=== PATIENT | female | born 1970 | race Caucasian/White ===

== ENCOUNTER 2022-01-25 17:18 | Emergency (ER) | payer BC, OTHER ==
[~2022-01-25] VITALS: Ht 160 cm; Wt 79.9 kg
[2022-01-25] MEDS ORDERED: SYNT125T PO (17:31)
[2022-01-25] MEDS ORDERED: diphenhydrAMINE 50MG CAP PO ONE (20:45)
[2022-01-25] MEDS ORDERED: predniSONE 20 MG TAB PO ONE (20:45)
[2022-01-25] MEDS ORDERED: MEDR4PAK PO (20:47)
[2022-01-25] MEDS ORDERED: CEPH500T PO (20:47)
[2022-01-25 21:32] VITALS: BP 140/85
== END 2022-01-25 21:34 | disposition home or self-care (01) ==
LOC: M ED 17:18
DX: T63.441A Toxic effect of venom of bees, accidental (unintentional), initial encounter (principal); E03.9 Hypothyroidism, unspecified; N80.9 Endometriosis, unspecified; Z85.850 Personal history of malignant neoplasm of thyroid; Z88.0 Allergy status to penicillin
CPT/HCPCS: 99283; J7512

== ENCOUNTER → 2022-09-01 | Outpatient (REF) | payer BC, OTHER ==
[~2022-09-01] MED LIST: CEPH500T PO; MEDR4PAK PO; SYNT125T PO
[2022-09-03 08:09] LABS: LDL DIRECT 215 mg/dL (0-99)
== END ==
LOC: M LAB REF 16:14
PROVIDERS: ATTEND Internal Medicine
DX: E78.5 Hyperlipidemia, unspecified (principal); Z13.89 Encounter for screening for other disorder

== ENCOUNTER → 2022-10-08 | Outpatient (CLI) | payer BC, OTHER ==
[2022-10-08 14:39] LABS: CALCIUM LEVEL 9.4 MG/DL (8.5-10.1)
[2022-10-08 14:45] LABS: THYROGLOBULIN ANTIBODY < 15.0 U/ML (<60.0)
[2022-10-09 10:08] LABS: THRYOGLOBULIN ANTIBODIES (ATA) < 1.0 IU/mL (0.0-0.9); THYROGLOBULIN QUANTITATIVE < 0.1 ng/mL (1.5-38.5)
[2022-10-13 16:08] LABS: CALCITONIN <2.0 pg/mL (0.0-5.0)
== END ==
LOC: M PLALAB 11:10
PROVIDERS: ATTEND Internal Medicine Endocrinology, Diabetes & Metabolism
DX: C73 Malignant neoplasm of thyroid gland (principal)

== ENCOUNTER 2022-11-05 06:09 | Day surgery (SDC) | payer BC, OTHER ==
[~2022-11-05] VITALS: Ht 160 cm; Wt 71.7 kg
[~2022-11-05 06:09] MED LIST changes: +ATOR1TAB21 PO; +LOSA25TA13 PO; +METF10004 PO; +NS 1,000 ML IV ONE
[2022-11-05] MEDS ORDERED: propofoL 200 MG/20 ML VIAL As Ordered ONE (07:09)
[2022-11-05 07:59] VITALS: TEMP 97.1
[2022-11-05 08:16] VITALS: BP 131/81; O2SAT 97
== END 2022-11-05 08:27 | disposition home or self-care (01) ==
LOC: M OPP 06:09
PROVIDERS: ATTEND Internal Medicine Gastroenterology
DX: Z12.11 Encounter for screening for malignant neoplasm of colon (principal); Z80.0 Family history of malignant neoplasm of digestive organs; K63.5 Polyp of colon; K64.4 Residual hemorrhoidal skin tags; K64.8 Other hemorrhoids; F17.220 Nicotine dependence, chewing tobacco, uncomplicated; Z79.02 Long term (current) use of antithrombotics/antiplatelets; Z79.84 Long term (current) use of oral hypoglycemic drugs; Z79.899 Other long term (current) drug therapy

== ENCOUNTER → 2023-03-31 | Outpatient (REF) | payer BC ==
[~2023-03-31] MED LIST changes: -NS 1,000 ML IV ONE
[2023-03-31 17:51] LABS: LUTEINIZING HORMONE 29.2 mIU/ML; PROLACTIN 5.09 NG/ML
== END ==
LOC: M LAB REF 16:32
PROVIDERS: ATTEND Internal Medicine
DX: L68.0 Hirsutism (principal)

== ENCOUNTER → 2023-07-01 | Outpatient (REF) | payer BC ==
[2023-07-01 12:36] LABS: APPEARANCE, URINE HAZY (CLEAR); BACTERIA, URINE AUTO 1+ (NEGATIVE); BILIRUBIN, URINE AUTO NEGATIVE (NEGATIVE); BLOOD, URINE BLOOD NEGATIVE (NEGATIVE); COLOR, URINE YELLOW (YELLOW); GLUCOSE, URINE (UA) AUTO 1+ mg/dL (NEGATIVE); KETONE, URINE AUTO NEGATIVE (NEGATIVE); LEUKOCYTE ESTERASE, URINE AUTO NEGATIVE (NEGATIVE); MUCUS, URINE SMALL (NEGATIVE); NITRITE, URINE AUTO NEGATIVE (NEGATIVE); PROTEIN, URINE AUTO 1+ mg/dL (NEGATIVE); RBC, URINE AUTO 2 /HPF (0-3); SPECIFIC GRAVITY URINE AUTO 1.024 (1.002-1.035); SQUAMOUS EPITHELIAL CELL UR AU 4 /HPF (0-6); UROBILINOGEN, URINE AUTO 0.2 mg/dL (0.0-2.0); WBC, URINE AUTO 5 /HPF (0-3)
[2023-07-01 13:12] LABS: PERCENT SATURATION 43.4 % (13.2-45.0)
[2023-07-01 13:13] LABS: FERRITIN 96.9 NG/ML (7.3-270.7)
== END ==
LOC: M LAB REF 11:53
PROVIDERS: ATTEND Internal Medicine
DX: D50.9 Iron deficiency anemia, unspecified (principal); F31.9 Bipolar disorder, unspecified; Z91.148 Patient's other noncompliance with medication regimen for other reason; R41.82 Altered mental status, unspecified

== ENCOUNTER 2024-04-21 12:34 | Emergency (ER) | payer BC, OTHER ==
[~2024-04-21] VITALS: Ht 160 cm; Wt 80.7 kg
[2024-04-21 12:37] VITALS: TEMP 98.5
[2024-04-21] MEDS ORDERED: TRAZ1TAB11 (12:44)
[2024-04-21] MEDS ORDERED: GLIM1TAB84 (12:44)
[2024-04-21] MEDS ORDERED: SEMA2PEN (12:44)
[2024-04-21] MEDS: KETOROLAC 30 MG/ML 1ML VIAL IV ONE ×2 (13:23→15:49)
[2024-04-21 13:27] LABS: BASO % 0.3 % (0.0-1.0); EOS # 0.1 10^3/uL (0.0-0.5); EOS % 1.2 % (0.0-3.0); HEMOGLOBIN 13.6 g/dl (12.0-15.5); LYMPH # 1.7 10^3/uL (1.5-5.0); LYMPH % 17.2 % (24.0-44.0); MEAN CORPUSCULAR HEMOGLOBIN 31.9 pg (27.0-33.0); MEAN CORPUSCULAR VOLUME 93.9 fl (80.0-96.0); MONO # 0.7 10^3/uL (0.0-0.8); MONO % 6.9 % (2.0-8.0); NEUTROPHILS # 7.3 10^3/uL (1.5-8.5); NEUTROPHILS % 73.9 % (36.0-66.0); PLATELET COUNT, AUTOMATED 264 10^3/uL (150-450); RED BLOOD COUNT 4.26 10^6/uL (4.00-5.40); WHITE BLOOD COUNT 9.9 10^3/uL (4.0-10.0)
[2024-04-21 13:55] LABS: INR 0.95; PARTIAL THROMBOPLASTIN TIME 27.2 SECONDS (24.8-34.2)
[2024-04-21 14:02] LABS: LIPASE 123 U/L (12-53)
[2024-04-21 14:04] LABS: ALBUMIN 3.8 G/DL (3.2-5.2); ALKALINE PHOSPHATASE 99 U/L (35-104); ALT/SGPT 63 U/L (7.0-40); AST/SGOT 31 U/L (<34); BILIRUBIN,DIRECT 0.4 MG/DL (<0.4); BILIRUBIN,TOTAL 1.4 MG/DL (0.3-1.2); BLOOD UREA NITROGEN 8 MG/DL (9-23); CALCIUM LEVEL 8.8 MG/DL (8.5-10.1); CARBON DIOXIDE LEVEL 24 MMOL/L (20-31); CHLORIDE LEVEL 104 MMOL/L (98-107); CK-MB VALUE MASS < 1.0 NG/ML (<3.6); CREATININE FOR GFR 1.02 MG/DL (0.55-1.30); GLOMERULAR FILTRATION RATE > 60.0 (>51); GLUCOSE, FASTING 195 MG/DL (60-100); POTASSIUM SERUM 4.1 MMOL/L (3.5-5.1); SODIUM LEVEL 137 MMOL/L (136-145); TOTAL PROTEIN 7.2 G/DL (5.7-8.2)
[2024-04-21 14:05] LABS: FREE T4 0.97 NG/DL (0.89-1.76); THYROID STIMULATING HORMONE 35.214 uIU/ML (0.55-4.78)
[2024-04-21 14:07] LABS: CPK CREATINE PHOSPHOKINASE 32 U/L (34-145); MB/CK RELATIVE INDEX 3.12 (< OR =4)
[2024-04-21] MEDS ORDERED: ISOVUE-370 76% 100ML VIAL As Ordered ONE (14:14)
[2024-04-21 14:40] LABS: CK-MB VALUE MASS < 1.0 NG/ML (<3.6); CPK CREATINE PHOSPHOKINASE 28 U/L (34-145); MB/CK RELATIVE INDEX 3.57 (< OR =4)
[2024-04-21 15:53] VITALS: BP 150/89; O2SAT 97
== END 2024-04-21 16:04 | disposition home or self-care (01) ==
LOC: M ED 12:34
DX: R07.9 Chest pain, unspecified (principal); J98.11 Atelectasis; R00.0 Tachycardia, unspecified; D25.9 Leiomyoma of uterus, unspecified; K76.0 Fatty (change of) liver, not elsewhere classified; N28.1 Cyst of kidney, acquired; E11.9 Type 2 diabetes mellitus without complications; Z88.0 Allergy status to penicillin; Z88.1 Allergy status to other antibiotic agents; Z86.73 Personal history of transient ischemic attack (TIA), and cerebral infarction without residual deficits; Z87.891 Personal history of nicotine dependence; Z79.02 Long term (current) use of antithrombotics/antiplatelets; Z79.899 Other long term (current) drug therapy
CPT/HCPCS: 36415; 71045; 71275; 74177; 80048; 80076; 82550; 82553; 83690; 84439; 84443; 84484; 85025; 85610; 85730; 93005; 93041; 94760; 96374; 96376; 99285; J1885; Q9967

== ENCOUNTER 2024-07-12 19:08 | Emergency (ER) | payer BC, OTHER ==
[~2024-07-12] VITALS: Ht 160 cm; Wt 74.8 kg
[~2024-07-12 19:08] MED LIST changes: +GLIM1TAB84; +SEMA2PEN; +TRAZ1TAB11
[2024-07-13 08:14] LABS: HEMATOCRIT 46.1 % (36.0-47.0); HEMOGLOBIN 15.4 g/dl (12.0-15.5); MEAN CORPUSCULAR HEMOGLOBIN 30.9 pg (27.0-33.0); MEAN CORPUSCULAR HGB CONC 33.4 g/dl (32.0-36.5); MEAN CORPUSCULAR VOLUME 92.6 fl (80.0-96.0); PLATELET COUNT, AUTOMATED 325 10^3/uL (150-450); RED BLOOD COUNT 4.98 10^6/uL (4.00-5.40); WHITE BLOOD COUNT 6.9 10^3/uL (4.0-10.0)
[2024-07-13 08:36] LABS: ETHYL ALCOHOL (ETHANOL) 0.003 % (0.000-0.010)
[2024-07-13 08:37] LABS: ALBUMIN 3.7 G/DL (3.2-5.2); ALKALINE PHOSPHATASE 89 U/L (35-104); ALT/SGPT 77 U/L (7.0-40); AST/SGOT 28 U/L (<34); BILIRUBIN,DIRECT 0.4 MG/DL (<0.4); BILIRUBIN,TOTAL 1.6 MG/DL (0.3-1.2); BLOOD UREA NITROGEN 11 MG/DL (9-23); CALCIUM LEVEL 9.1 MG/DL (8.5-10.1); CARBON DIOXIDE LEVEL 25 MMOL/L (20-31); CHLORIDE LEVEL 103 MMOL/L (98-107); CREATININE FOR GFR 0.76 MG/DL (0.55-1.30); GLOMERULAR FILTRATION RATE > 60.0 (>51); GLUCOSE, FASTING 216 MG/DL (60-100); POTASSIUM SERUM 4.4 MMOL/L (3.5-5.1); SALICYLATE LEVEL < 3.0 MG/DL (<30); SODIUM LEVEL 138 MMOL/L (136-145); TOTAL PROTEIN 7.3 G/DL (5.7-8.2)
[2024-07-13 08:41] LABS: THYROID STIMULATING HORMONE 0.803 uIU/ML (0.55-4.78)
[2024-07-13 08:55] LABS: HCG, SERUM QUALITATIVE NEGATIVE (NEGATIVE)
[2024-07-13] MEDS ORDERED: SEMA0.257 SQ (09:23)
[2024-07-13] MEDS ORDERED: HOME MED LIST COMPLETE! XX SCH (09:25)
[2024-07-13 10:40] LABS: AMPHETAMINES LEVEL URINE NEGATIVE (NEGATIVE)
[2024-07-13 10:41] LABS: BARBITURATES URINE NEGATIVE (NEGATIVE); BENZODIAZEPINES URINE NEGATIVE (NEGATIVE); CANNABINOIDS URINE NEGATIVE (NEGATIVE); COCAINE METABOLITE URINE NEGATIVE (NEGATIVE); METHADONE URINE NEGATIVE (NEGATIVE); OPIATES URINE NEGATIVE (NEGATIVE); PHENCYCLIDINE URINE NEGATIVE (NEGATIVE)
[2024-07-13 11:54] VITALS: BP 110/68; TEMP 97.5; O2SAT 97
[2024-07-13] MEDS ORDERED: HYDR-3363 PO (12:15)
== END 2024-07-13 12:22 | disposition home or self-care (01) ==
LOC: M ED 19:08
DX: F32.A Depression, unspecified (principal); F41.9 Anxiety disorder, unspecified; I44.4 Left anterior fascicular block; R00.0 Tachycardia, unspecified; E11.9 Type 2 diabetes mellitus without complications; F31.9 Bipolar disorder, unspecified; E03.9 Hypothyroidism, unspecified; Z88.0 Allergy status to penicillin; Z88.1 Allergy status to other antibiotic agents; Z79.899 Other long term (current) drug therapy

== ENCOUNTER → 2024-09-29 | Outpatient (CLI) | payer BC, OTHER ==
[~2024-09-29] MED LIST changes: +HYDR-3363 PO; +SEMA0.257 SQ
== END ==
LOC: M WHC 14:14
PROVIDERS: ATTEND Internal Medicine
DX: N83.202 Unspecified ovarian cyst, left side (principal); N88.8 Other specified noninflammatory disorders of cervix uteri; D25.9 Leiomyoma of uterus, unspecified

== ENCOUNTER 2025-01-19 14:39 | Emergency (ER) | payer BC, OTHER ==
[~2025-01-19] VITALS: Ht 160 cm; Wt 81.1 kg
[~2025-01-19 14:39] MED LIST changes: +OMEP40CA4 PO; +ROSU5TAB49 PO; +SEMA2PEN SQ; +SERTRALINE; +SUCR1TA PO; +TOPR25TA PO; +ZOLO100T PO
[2025-01-19] MEDS ORDERED: METO1TAB7 PO (15:01)
[2025-01-19] MEDS ORDERED: METF500T13 PO (15:01)
[2025-01-19 15:44] LABS: BASO # 0.0 10^3/uL (0.0-0.2); BASO % 0.4 % (0.0-1.0); EOS # 0.1 10^3/uL (0.0-0.5); EOS % 1.4 % (0.0-3.0); LYMPH # 2.3 10^3/uL (1.5-5.0); LYMPH % 27.4 % (24.0-44.0); MONO # 0.5 10^3/uL (0.0-0.8); MONO % 6.4 % (2.0-8.0); NEUTROPHILS # 5.3 10^3/uL (1.5-8.5); NEUTROPHILS % 63.3 % (36.0-66.0); PLATELET COUNT, AUTOMATED 225 10^3/uL (150-450)
[2025-01-19 16:11] LABS: ALT/SGPT 64 U/L (7.0-40); AST/SGOT 55 U/L (<34); CALCIUM LEVEL 9.1 MG/DL (8.5-10.1); CARBON DIOXIDE LEVEL 22 MMOL/L (20-31); CHLORIDE LEVEL 98 MMOL/L (98-107); CK-MB VALUE MASS < 1.0 NG/ML (<3.6); CREATININE FOR GFR 0.77 MG/DL (0.55-1.30); GLOMERULAR FILTRATION RATE > 90.0 (>51); POTASSIUM SERUM 5.1 MMOL/L (3.5-5.1); SODIUM LEVEL 133 MMOL/L (136-145)
[2025-01-19] MEDS ORDERED: MORPHINE 2 MG/ML 1 ML VIAL IV ONE (16:15)
[2025-01-19 16:18] LABS: CPK CREATINE PHOSPHOKINASE 47 U/L (34-145)
[2025-01-19] MEDS ORDERED: ISOVUE-370 76% 100 ML VIAL As Ordered ONE (16:18)
[2025-01-19] MEDS: ONDANSETRON 4MG 2ML VIAL IV ONE (17:22)
[2025-01-19 18:14] LABS: CK-MB VALUE MASS < 1.0 NG/ML (<3.6)
[2025-01-19 18:17] LABS: CPK CREATINE PHOSPHOKINASE 32 U/L (34-145)
[2025-01-19 21:10] VITALS: TEMP 97
[2025-01-19] MEDS: PERCOCET 5MG/325MG TAB PO ONE (21:10)
[2025-01-19 22:19] LABS: ERYTHROCYTE SEDIMENTATION RATE 29 mm/hr (0-30)
[2025-01-19 22:45] VITALS: BP 117/68; O2SAT 97
== END 2025-01-19 22:52 | disposition home or self-care (01) ==
LOC: M ED 14:39
DX: R07.9 Chest pain, unspecified (principal); R51.9 Headache, unspecified; J98.11 Atelectasis; G93.89 Other specified disorders of brain; E11.9 Type 2 diabetes mellitus without complications; I10 Essential (primary) hypertension; E78.5 Hyperlipidemia, unspecified; F41.9 Anxiety disorder, unspecified; F32.9 Major depressive disorder, single episode, unspecified; Z86.79 Personal history of other diseases of the circulatory system; Z88.0 Allergy status to penicillin; Z88.1 Allergy status to other antibiotic agents; Z88.5 Allergy status to narcotic agent; Z79.4 Long term (current) use of insulin; Z79.899 Other long term (current) drug therapy
CPT/HCPCS: 70450; 70551; 71045; 71275; 80048; 80076; 82550; 82553; 83690; 84484; 85025; 85652; 85730; 93005; 93041; 94760; 96374; 99285; J2405; J3010; Q9967

== ENCOUNTER → 2025-02-16 | Outpatient (REF) | payer BC, OTHER ==
[~2025-02-16] MED LIST changes: +METF500T13 PO; +METO1TAB7 PO
[2025-02-16 15:03] LABS: BASO # 0.0 10^3/uL (0.0-0.2); BASO % 0.6 % (0.0-1.0); EOS # 0.2 10^3/uL (0.0-0.5); EOS % 2.9 % (0.0-3.0); LYMPH # 2.2 10^3/uL (1.5-5.0); LYMPH % 33.3 % (24.0-44.0); MONO # 0.4 10^3/uL (0.0-0.8); MONO % 6.3 % (2.0-8.0); NEUTROPHILS # 3.7 10^3/uL (1.5-8.5); NEUTROPHILS % 56.0 % (36.0-66.0); PLATELET COUNT, AUTOMATED 253 10^3/uL (150-450)
[2025-02-16 15:24] LABS: CALCIUM LEVEL 8.7 MG/DL (8.5-10.1); CARBON DIOXIDE LEVEL 25.0 MMOL/L (20-31); CHLORIDE LEVEL 98.0 MMOL/L (98-107); CREATININE FOR GFR 0.82 MG/DL (0.55-1.30); GLOMERULAR FILTRATION RATE 84.4 (>51); MAGNESIUM LEVEL 1.6 MG/DL (1.8-2.4); POTASSIUM SERUM 4.5 MMOL/L (3.5-5.1); SODIUM LEVEL 135.0 MMOL/L (136-145)
[2025-02-16 15:38] LABS: INR 0.81
== END ==
LOC: M LAB REF 14:20
PROVIDERS: ATTEND Internal Medicine
DX: Z01.818 Encounter for other preprocedural examination (principal)

== ENCOUNTER → 2025-02-20 | Outpatient (CLI) | payer BC, OTHER ==
[~2025-02-20] MED LIST changes: +PROHANCE 279.3MG/ML 15ML VIAL ONE
== END ==
LOC: M PLAIMG 14:53
PROVIDERS: ATTEND Internal Medicine
DX: R93.7 Abnormal findings on diagnostic imaging of other parts of musculoskeletal system (principal)
CPT/HCPCS: 73220; A9576

== ENCOUNTER → 2025-03-13 | Outpatient (CLI) | payer BC, OTHER ==
[~2025-03-13] MED LIST changes: -PROHANCE 279.3MG/ML 15ML VIAL ONE
== END ==
LOC: M WHC 10:13
PROVIDERS: ATTEND Obstetrics & Gynecology
DX: N64.4 Mastodynia (principal); R92.323 Mammographic fibroglandular density, bilateral breasts

== ENCOUNTER → 2025-04-25 | Outpatient (REF) | payer BC, OTHER ==
[2025-04-25 15:12] LABS: IRON (FE) 74.0 UG/DL (50-170)
[2025-04-25 15:13] LABS: PERCENT SATURATION 25.8 % (13.2-45.0)
== END ==
LOC: M LAB REF 14:14
PROVIDERS: ATTEND Internal Medicine
DX: N18.31 Chronic kidney disease, stage 3a (principal)